=== PATIENT | male | born 1970 | race Caucasian/White ===

== ENCOUNTER 2019-06-16 01:32 | Day surgery (SDC) | payer OTHER, SELFPAY ==
[2019-06-09 11:22] VITALS: BMI 32.3
[2019-06-16 07:43] VITALS: BP 119/91; PULSE 78; RESP 20; TEMP 37.1; O2SAT 96
[2019-06-16] MEDS: LACTATED RINGERS 1,000 ML 150 ML IV CONT (07:54)
--- NOTE | 2019-06-16 07:59 | PM.HPGS ---
History of Present Illness History of Present Illness Consent: Risks, benefits, and alternatives have been discussed and questions answered. Patient agrees to proceed with procedure. Chief complaint: neoplasm screening Narrative: Aleksander Mora is a 49 year old W male referred for his 1st screening colonoscopy. Patient is asymptomatic and there is no known family history of colon polyps or colon cancer [facility] Surgical History Surgical History (Updated 06/16/19 @ 08:00 by Francisco Javier Pineda MD) H/O exploratory laparotomy Status post tonsillectomy and adenoidectomy Meds Home Medications and Allergies Home Medications Medication Instructions Recorded Confirmed Type No Home Medications 06/09/19 06/16/19 History Allergies Allergy/AdvReac Type Severity Reaction Status Date / Time No Known Allergies Allergy Mild Unverified 06/16/19 07:39 Vital Signs Vital Signs - 24 hr 06/16/19 07:43 Temperature 37.1 C Pulse Rate 78 Respiratory Rate 20 Blood Pressure 119/91 H Pulse Oximetry 96 Exam Const: Orientation/consciousness: patient oriented x3 Resp: Auscultation: clear to auscultation bilaterally Cardio: Rate: regular rate Rhythm: regular rhythm Heart sounds: no murmurs GI: GI Palp: Yes Soft to palpation, No Tenderness to palpation present (GI), Yes No hepatosplenomegaly present and No Palpable mass present Auscultation: normal bowel sounds Neuro: General: patient oriented x3 and no focal motor deficits Extrem: General: no pedal edema Assessment and Plan Additional Plan screening colonoscopy in average risk patient
--- NOTE | 2019-06-16 08:20 | WPDANESEPPF ---
Anes - Initial Pre Proc Eval Procedure: Operation Date: 06/16/19 08:30 Proposed Procedures p Screening Colonoscopy - Francisco Javier Pineda MD Date/Time: 06/16/19 08:20 Surgeon: Francisco Javier Pineda MD Pre Op Diagnosis: neoplasm screening Patient Data Age: 49 Gender: M Height: 5 ft 11 in Weight: 102.6 kg Last Vital Signs Temp 98.7 F 06/16/19 07:43 Pulse 78 06/16/19 07:43 Resp 20 06/16/19 07:43 BP 119/91 H 06/16/19 07:43 Pulse Ox 96 06/16/19 07:43 Allergies Allergy/AdvReac Type Severity Reaction Status Date / Time No Known Allergies Allergy Mild Unverified 06/16/19 07:39 Home Medications Medication Instructions Recorded Confirmed Type No Home Medications 06/09/19 06/16/19 History Patient hx anesthesia problems: none Family hx anesthesia problems: none [facility] Past Medical History Medical History (Updated 06/16/19 @ 08:20 by Fortino Gardner MD) Obesity Surgical History Surgical History (Updated 06/16/19 @ 08:00 by Francisco Javier Pineda MD) H/O exploratory laparotomy Status post tonsillectomy and adenoidectomy Anes - Eval Final PreProcedure Day of Procedure 06/16/19 08:20 Patient weight: obese Heart: regular rate and rhythm Lungs: clear to auscultation Airway: Mallampati scale class II Neurological: alert and oriented Last oral intake: >/= 8 hours ASA classification: II Emergent: no Anesthetic plan: proceed Anesthesia type and monitoring: general GIVS and standard monitoring Informed Consent: The patient's anesthetic plan and its attendant risks and benefits were discussed with the patient/family/POA. Questions were solicited and answers provided to the satisfaction of the patient/family/POA.
[2019-06-16] MEDS: SIMETHICONE ORAL SUSPENSION 20 MG/0.3 ML 30 ML BOTTLE 0.6 ML IRRIGATION (09:00)
[2019-06-16 09:09] VITALS: BP 111/74; PULSE 70; RESP 22; O2SAT 96
[2019-06-16 09:19] VITALS: BP 116/74; PULSE 74; RESP 24; O2SAT 98
[2019-06-16 09:29] VITALS: BP 122/68; PULSE 74; RESP 18; O2SAT 100
== END 2019-06-16 09:32 | disposition home or self-care (01) ==
PROVIDERS: PCP Internal Medicine; Visit Provider Internal Medicine Gastroenterology
PROC: 0DJD8ZZ Inspection of Lower Intestinal Tract, Via Natural or Artificial Opening Endoscopic (ICD-10-PCS; CPT 45378; principal; 2019-06-16 08:30)
DX: Z12.11 Encounter for screening for malignant neoplasm of colon (principal); K57.30 Diverticulosis of large intestine without perforation or abscess without bleeding; K64.8 Other hemorrhoids; E66.9 Obesity, unspecified; Z68.31 Body mass index [BMI] 31.0-31.9, adult
CPT/HCPCS: 45378; J2001; J2704; J7120